=== PATIENT | male | born 1950 | race Hispanic/Latino ===

== ENCOUNTER 2021-03-14 12:13 | Outpatient (CLI) | payer MEDICARE ==
[2021-03-14 13:27] LABS: Estimated GFR-MDRD - POC Greater than 90
== END 2021-03-14 12:14 | disposition home or self-care (01) ==
LOC: CSHMRI 12:13
PROVIDERS: ATTEND Nurse Practitioner Family
DX: R97.20 Elevated prostate specific antigen [PSA] (principal)
CPT/HCPCS: 72197; 82565

== ENCOUNTER 2021-08-19 10:50 | Outpatient (CLI) | payer MEDICARE ==
[~2021-08-19 10:50] MED LIST: Magnevist 469MG/ML 20 ML VIAL ONE
[2021-08-19 11:33] LABS: Estimated GFR-MDRD - POC Greater than 90
== END 2021-08-19 10:51 | disposition home or self-care (01) ==
LOC: CSHMRI 10:50
PROVIDERS: ATTEND Urology
DX: C61 Malignant neoplasm of prostate (principal)
CPT/HCPCS: 72197; 82565